=== PATIENT | female | born 1950 | race Caucasian/White ===

== ENCOUNTER → 2016-12-15 | Outpatient (CLI) | payer OTHER | END | disposition home or self-care (01) | LOC: GMAL 18:12 | PROVIDERS: ATTEND Family Medicine | DX: D51.3 Other dietary vitamin B12 deficiency anemia (principal); R06.02 Shortness of breath ==

== ENCOUNTER → 2017-01-13 | Outpatient (CLI) | payer OTHER | LOC: GMAL 10:48 | PROVIDERS: ATTEND Family Medicine | DX: N39.0 Urinary tract infection, site not specified (principal) ==

== ENCOUNTER → 2017-04-25 | Outpatient (CLI) | payer OTHER | END | disposition home or self-care (01) | LOC: GMAL 14:10 | PROVIDERS: ATTEND Family Medicine | DX: N39.0 Urinary tract infection, site not specified (principal) ==

== ENCOUNTER → 2017-05-17 | Outpatient (CLI) | payer OTHER | END | disposition home or self-care (01) | LOC: GMAL 10:51 | PROVIDERS: ATTEND Family Medicine | DX: E55.9 Vitamin D deficiency, unspecified (principal) ==

== ENCOUNTER → 2017-08-23 | Outpatient (CLI) | payer OTHER | END | disposition home or self-care (01) | LOC: GMAL 12:34 | PROVIDERS: ATTEND Family Medicine | DX: E55.9 Vitamin D deficiency, unspecified (principal) ==

== ENCOUNTER → 2017-09-21 | Outpatient (CLI) | payer OTHER | END | disposition home or self-care (01) | LOC: MAMMO 08:48 | PROVIDERS: ATTEND Family Medicine | DX: Z12.31 Encounter for screening mammogram for malignant neoplasm of breast (principal) | CPT/HCPCS: 77063; G0202 ==

== ENCOUNTER 2017-09-28 16:28 | Emergency (ER) | payer MEDICARE, MEDICAID ==
--- NOTE | 2017-09-28 17:55 | RAD ---
EXAM DESCRIPTION: Lumbar Spine 3 Views CLINICAL HISTORY: 67 years ,Female bilateral lower ext weakness COMPARISON: November 08, 2011 TECHNIQUE: Three view FINDINGS: Vertebral body alignment is unremarkable. No acute fractures are identified. Intravertebral disc cages at L4-L5 which appears stable. Narrowing of the L5-S1 disc interspace which has progressed. Marginal osteophytes at L2-L3. No acute fracture noted. Moderate fecal material in the colon. IMPRESSION: Degenerative changes which appear to be progressed slightly as compared to the previous at the L5-S1 level Postsurgical changes of spinal fusion at L4-L5 Electronically signed by: Jenny Short 09/28/2017 5:54 PM [facility]
--- NOTE | 2017-09-28 18:55 | CT ---
PROCEDURE: Lumbar Spine CLINICAL HISTORY: 67 years ,Female ,bilateral lower extremity weakness 2 days COMPARISON: None. TECHNIQUE: Contiguous axial images obtained through the lumbar spine without IV contrast. Coronal and sagittal reformatted images obtained. This exam was performed according to our department optimization program which includes automated exposure control, adjustment of the mA and/or kv according to patient size and/or use of iterative reconstruction technique. FINDINGS: Normal alignment lordosis. Vascular calcification. Intervertebral disc cage and fusion at L4-L5. Narrowing of the L5-S1 disc interspace. Facet arthropathy in the lower lumbar spine. No acute fracture is noted. Liver appears prominent. L2-3: Mild bulging of the disc without significant central canal stenosis. Mild flattening of the anterior aspect of the thecal sac. L3-4: Mild disc bulging and facet arthropathy without significant central canal or neural foraminal narrowing. L4-5: Mild to moderate neural foraminal impingement bilaterally. No central canal stenosis. L5-S1: Facet arthropathy and generalized bulging of the disc with spurring on the right. There is moderate neural foraminal stenosis worse on the right. IMPRESSION: No acute fracture and no significant central canal stenosis Degenerative changes as described Liver appears prominent. Electronically signed by: Jenny Short 09/28/2017 6:53 PM [employer]
--- NOTE | 2017-09-28 19:56 | ED.PDOC ---
History of Present Illness - General Chief Complaint: General Stated Complaint: bilateral lower leg weakness Time Seen by Provider: 09/28/17 16:40 Source: patient, family Exam Limitations: no limitations - History of Present Illness Initial Comments: The patient is a 67-year-old female presenting to the emergency room secondary to 3-4 days of progressive weakness of her lower extremities. No new weakness of the upper extremities. No shortness of breath. No truncal instability. No altered mental status. No headache. No fever. 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 She also does have chronic low back pain with intermittent sciatica which is at its baseline as well. She did fall earlier this morning but is not having any pain from that. She does not seem to be having any new sensory loss. She does have a mild peripheral neuropathy that is chronic but appears to be stable. Sensation to vibration, position, heat and cold appear to be stable for her. No recent medication changes. She reports fair diabetes control. No recent illnesses such as cold sore gastroenteritis. She is not taking any blood thinners. No syncope or near syncope. The patient does have a history of 2 back surgeries in the past the last of which was approximately 10 years ago. She reports that 7 years ago she had a episode like this that lasted approximately 1-2 weeks where she had significant bilateral lower extremity weakness and was treated with steroids and physical therapy and got better. She is not having any incontinence. The patient has 1+ deep tendon reflexes bilateral lower extremities with 2+ to the upper extremities. Strength on physical exam of the lower extremities is 4-4+/5. she is unstable with standing due to weakness in her legs. She does require significant assistance with this. Severity: moderate Improving Factors: nothing Worsening Factors: nothing Associated Symptoms: weakness Allergies/Adverse Reactions: Allergies Amoxicillin [From Augmentin] Allergy (Verified 09/28/17 17:03) Clavulanic Acid [From Augmentin] Allergy (Verified 09/28/17 17:03) Penicillin G Allergy (Verified 08/31/15 10:40) Home Medications: Ambulatory Orders Amlodipine Besylate [Norvasc] 2.5 mg PO DAILY 05/12/14 Anxiety Med 0 mg PO DAILY PRN 05/12/14 Atorvastatin Calcium [Lipitor] 20 mg PO DAILY 05/12/14 Carisoprodol [Soma] 250 mg PO BID 05/12/14 Glimepiride [Amaryl] 1 mg PO DAILY 05/12/14 HYDROcodone 10MG/APAP 325MG [[place] 10/325] 1 tab PO PRN PRN 05/12/14 Sulfa/Trimeth 800/160 (Ds) Tab [Bactrim DS Tab] 1 ea PO BID #20 tab 08/31/15 Ciprofloxacin [Cipro] 250 mg PO BID 10 Days tab 02/23/16 Metronidazole 500 mg PO TID #30 tab 02/23/16 Nitrofurantoin Monohydrate Mac [Macrobid] 100 mg PO BID #20 cap 03/17/16 Review of Systems - Review of Systems Constitutional: States: weakness EENTM: States: no symptoms reported Respiratory: States: no symptoms reported Cardiology: States: no symptoms reported Gastrointestinal/Abdominal: States: no symptoms reported Genitourinary: States: no symptoms reported Musculoskeletal: States: back pain - chronic Skin: States: no symptoms reported Neurological: States: tremors - chronic, weakness - see history of present illness Endocrine: States: no symptoms reported Hematologic/Lymphatic: States: no symptoms reported All other Systems: No Change from Baseline Past Medical History (General) - Patient Medical History Hx Seizures: No Hx Stroke: No Hx Dementia: No Hx Asthma: No Hx of COPD: No Hx Cardiac Disorders: No Hx Congestive Heart Failure: No Hx Pacemaker: No Hx Hypertension: Yes Hx Diabetes: Yes Hx Gastroesophageal Reflux: No Hx Renal Disease: No Hx Cancer: No Hx Hepatitis C: No Hx MRSA: Yes - Wound 2014 MRSA Source:: Wound Surgical History: appendectomy, cholecystectomy, Hysterectomy, other - Vaccination History Hx Tetanus, Diphtheria Vaccination: No Hx Influenza Vaccination: Yes Hx Pneumococcal Vaccination: Yes - Social History Hx Tobacco Use: No Hx Alcohol Use: No Hx Substance Use: No Hx Substance Use Treatment: No Hx Depression: No Family Medical History - Family History Mother Family History: No Known Living Status: Cause of : PR Hx Cardiac Disease: Yes Physical Exam - Physical Exam General Appearance: Alert, Comfortable, No apparent distress Eye Exam: bilateral normal Ears, Nose, Throat: hearing grossly normal, normal ENT inspection - poor dentition, normal pharynx Neck: full range of motion, supple, normal inspection Respiratory: lungs clear, normal breath sounds, no respiratory distress, no accessory muscle use Cardiovascular/Chest: normal peripheral pulses, regular rate, rhythm, no edema Peripheral Pulses: radial,right: 2+, radial,left: 2+, dorsalis pedis,right: 2+, dorsalis pedis,left: 2+ Gastrointestinal/Abdominal: non tender - obese, soft Rectal Exam: deferred Back Exam: normal inspection - operative site noted, no vertebral tenderness, other - she doesn't mild paraspinal discomfort to palpation from L3-L5 bilaterally Extremity: non-tender, no pedal edema, normal capillary refill - the patient does have significantweakness as stated per history of present illness of her lower extremities, other - she does have limited range of motion of her lower extremities primarily due to chronic back pain area Neurologic: brand mgr II-XII nml as tested, alert, normal mood/affect, oriented x 3, abnormal cerebellar tests, motor weakness - ee history of present illness, other - mild sensory deficit bilateral lower extremities which is apparently chronic DTR: 1+: Achilles, left, Achilles, right, Patellar, left, Patellar, right, 2+: Biceps, left, Biceps, right, Brachioradialis, left, Brachioradialis, right Skin Exam: normal color Comments: Vital Signs - 24 hr 09/28/17 16:50 Temperature 98.4 F Pulse Rate [ 81 pulse ox] Respiratory 20 Rate Blood Pressure 179/78 [Left Arm] O2 Sat by Pulse 94 L Oximetry Progress - Progress Progress: 09/28/17 19:59 the patient is a 67-year-old female presenting secondary to 3-4 days of slowly progressive bilateral lower extremity weakness finally culminating in her being unable to ambulate on her own today. She does not have flaccid paralysis. It was a subacute process. She is not having any new pain and is not having any new sensory changes or incontinence. CT scan of the lumbar spine showed no definitive acute pathology however she does have moderate foraminal impingement at L4-L5 bilaterally as well as L5-S1 on the right as well as a moderate disc bulge at L5-S1. Laboratory work so far looks reassuring. The patient has not been given any steroids at this time. The patient is being transferred for neurological evaluation. I'm uncertain at this time if her symptoms are coming from mechanical compression from her chronic low back problems or if she is having ascending weakness from another pathology such as early Guillain Fernandes syndrome, or an atypical transverse myelitis. her previous episode seems to argue for the former. However if it is the latter, early detection would certainly prove beneficial in treatment. Dr Hsieh has graciously agreed to accept the patient for transfer. CT scan of the head shows no evidence of any acute ischemia, hemorrhage, mass effect or hydrocephalus. 09/28/17 20:21 - Results/Orders Results/Orders: Laboratory Tests 09/28/17 09/28/17 09/28/17 17:30 17:30 17:46 WBC 5.6 RBC 4.32 Hgb 12.7 Hct 38.0 MCV 88.0 MCH 29.4 MCHC 33.4 RDW 12.9 Plt Count 206 MPV 8.8 Absolute Neuts (auto) 2.80 Absolute Lymphs (auto) 2.20 Absolute Monos (auto) 0.40 Absolute Eos (auto) 0.20 Absolute Basos (auto) 0.00 Neutrophils % 49.7 Lymphocytes % 39.1 Monocytes % 7.6 Eosinophils % 3.0 Basophils % 0.6 Sodium 136 Potassium 3.5 L Chloride 101 Carbon Dioxide 26 Anion Gap 12.5 BUN 10 Creatinine 0.62 BUN/Creatinine Ratio 16.1 Random Glucose 207 H Serum Osmolality 277.0 Calcium 9.4 Magnesium 1.8 Total Bilirubin 0.5 AST 25 ALT 19 Alkaline Phosphatase 60 Creatine Kinase 52 CK-MB (CK-2) 0.6 CK-MB (CK-2) % Not Reportable Troponin I < 0.02 Serum Total Protein 7.0 Albumin 3.7 Globulin 3.3 Albumin/Globulin Ratio 1.1 TSH 0.90 Urine Color Yellow Urine Appearance Clear Urine pH 6.0 Ur Specific [place] 1.020 Urine Protein Negative Urine Glucose (UA) 100 H Urine Ketones Negative Urine Blood Negative Urine Nitrite Negative Urine Bilirubin Negative Urine Urobilinogen 0.2 Ur Leukocyte Esterase Negative Urine RBC 0-1 Urine WBC 3-5 H Ur Epithelial Cells 3-[address] scan of lumbar spine shows moderate foraminal impingement bilaterally at L4- 5 as well as on the right at L5-S1. There is also moderate disc bulge at L5- S1. Chronic degenerative and postoperative changes otherwise. Departure - Departure Clinical Impression: Weakness of both lower extremities Disposition: Transfer to Hospital Referrals: Franklyn Alonzo III, MD [Primary Care Provider] - 1-2 Weeks Home Medications: Ambulatory Orders Amlodipine Besylate [Norvasc] 2.5 mg PO DAILY 05/12/14 Anxiety Med 0 mg PO DAILY PRN 05/12/14 Atorvastatin Calcium [Lipitor] 20 mg PO DAILY 05/12/14 Carisoprodol [Soma] 250 mg PO BID 05/12/14 Glimepiride [Amaryl] 1 mg PO DAILY 05/12/14 HYDROcodone 10MG/APAP 325MG [[place] 10/325] 1 tab PO PRN PRN 05/12/14 Sulfa/Trimeth 800/160 (Ds) Tab [Bactrim DS Tab] 1 ea PO BID #20 tab 08/31/15 Ciprofloxacin [Cipro] 250 mg PO BID 10 Days tab 02/23/16 Metronidazole 500 mg PO TID #30 tab 02/23/16 Nitrofurantoin Monohydrate Mac [Macrobid] 100 mg PO BID #20 cap 03/17/16 Transfer to Outside Facility - Transfer Information Accepting Provider:: dr hsieh Accepting Facility: [facility] Reason for Transfer: required specialist not available
--- NOTE | 2017-09-28 20:20 | CT ---
EXAM DESCRIPTION: Head CLINICAL HISTORY: bilateral le weakness gradual 3 days COMPARISON: None Available. TECHNIQUE: Contiguous axial images of the brain were obtained without the administration of intravenous contrast. This exam was performed according to our departmental dose-optimization program, which includes automated exposure control, adjustment of the mA and/or kV according to patient size and/or use of iterative reconstruction technique. FINDINGS: There is no acute intracranial hemorrhage or mass effect. Ventricular system is within normal limits. There is adequate isbell-white matter differentiation. There is no skull fracture. The visualized paranasal sinuses and mastoid air cells are within normal limits. There is atherosclerosis. IMPRESSION: No acute intracranial abnormalities. Electronically signed by: Benjamin French MD 09/28/2017 8:[address] [facility]
[2017-09-28 21:01] VITALS: BP 167/83; TEMP 98.2; O2SAT 96
== END 2017-09-28 21:30 | disposition short-term general hospital (02) ==
LOC: ER 16:28
DX: M62.81 Muscle weakness (generalized) (principal); M51.27 Other intervertebral disc displacement, lumbosacral region; E11.9 Type 2 diabetes mellitus without complications; I10 Essential (primary) hypertension

== ENCOUNTER → 2017-12-21 | Outpatient (CLI) | payer MEDICARE, MEDICAID | END | disposition home or self-care (01) | LOC: GMAL 10:21 | PROVIDERS: ATTEND Family Medicine | DX: E55.9 Vitamin D deficiency, unspecified (principal) ==

== ENCOUNTER → 2018-03-29 | Outpatient (CLI) | payer MEDICARE, MEDICAID | LOC: GMAL 12:23 | PROVIDERS: ATTEND Family Medicine | DX: D51.3 Other dietary vitamin B12 deficiency anemia (principal); R53.82 Chronic fatigue, unspecified ==

== ENCOUNTER → 2018-07-05 | Outpatient (CLI) | payer MEDICARE, MEDICAID | LOC: GMAL 14:41 | PROVIDERS: ATTEND Family Medicine | DX: N39.0 Urinary tract infection, site not specified (principal) ==

== ENCOUNTER → 2019-06-01 | Outpatient (CLI) | payer MEDICARE, MEDICAID | LOC: GMAL 10:12 | PROVIDERS: ATTEND Family Medicine | DX: D51.3 Other dietary vitamin B12 deficiency anemia (principal); R53.82 Chronic fatigue, unspecified; I10 Essential (primary) hypertension; E11.42 Type 2 diabetes mellitus with diabetic polyneuropathy; E78.2 Mixed hyperlipidemia; Z51.81 Encounter for therapeutic drug level monitoring ==

== ENCOUNTER → 2019-09-03 | Outpatient (CLI) | payer MEDICARE, MEDICAID | LOC: GMAL 10:55 | PROVIDERS: ATTEND Family Medicine | DX: D51.3 Other dietary vitamin B12 deficiency anemia (principal); I10 Essential (primary) hypertension; E11.42 Type 2 diabetes mellitus with diabetic polyneuropathy; E78.2 Mixed hyperlipidemia ==

== ENCOUNTER → 2020-02-08 | Outpatient (CLI) | payer MEDICARE, MEDICAID ==
--- NOTE | 2020-02-08 17:03 | MRI ---
EXAM DESCRIPTION: Lumbar Spine w/o Contrast CLINICAL HISTORY: low back pain COMPARISON: CT scan September 28, 2017 TECHNIQUE: Multiplanar, multisequence MRI of the lumbar spine was performed without contrast. FINDINGS: Lumbar vertebral body heights are maintained. Normal lumbar lordosis. Mild curvature of the mid lumbar spine with convexity towards the right. Conus medullaris terminates at L1 and is unremarkable. Visualized intra-abdominal and retroperitoneal structures show no acute findings. L1-2 Desiccation. No disc space narrowing. Mild Modic type I degenerative endplate edema is seen in the anterior inferior plate of L1. L2-3 Disc desiccation and moderate posterior disc space narrowing with trace retrolisthesis. Broad-based disc bulge flattens ventral surface of the thecal sac. Mild Modic type I degenerative endplate signal changes are seen. No spinal canal stenosis. Minimal left foraminal encroachment. L3-4 Mild bilateral facet hypertrophic and degenerative changes are seen. No spinal canal stenosis or foraminal encroachment. L4-5 Metallic susceptibility artifact from interbody cage. Unroofing L4 laminectomy. No spinal canal stenosis. No foraminal encroachment. Small area fluid signal in the posterior right epidural space measuring 8 x 7 mm likely represents postop hematoma or seroma without mass effect on the thecal sac. L5-S1 Disc desiccation and mild diffuse disc space narrowing. Minimal less than 2 mm broad-based disc bulging without spinal canal stenosis or foraminal encroachment. Mild bilateral facet hypertrophic and degenerative changes are seen. Mild far lateral disc osteophytic ridging right greater than left. At least moderate right and mild left foraminal encroachment is seen with mild extraforaminal encroachment of the right L5 nerve root. IMPRESSION: Postsurgical changes at L4-5 are seen without complicating features. Moderate disc degenerative disease and mild facet arthropathy at L2-3 is seen without spinal canal stenosis or foraminal encroachment. Multifactorial moderate right greater than left foraminal encroachment is seen at L5-S1. Electronically signed by: Clinton Saldaña MD 02/08/2020 5:01 PM CDT
== END ==
LOC: MRI 10:00
PROVIDERS: ATTEND Family Medicine
DX: M51.36 Other intervertebral disc degeneration, lumbar region (principal); M12.9 Arthropathy, unspecified; M48.061 Spinal stenosis, lumbar region without neurogenic claudication; Z98.890 Other specified postprocedural states

== ENCOUNTER → 2020-07-22 | Outpatient (CLI) | payer MEDICARE, MEDICAID | LOC: GMAL 10:54 | PROVIDERS: ATTEND Family Medicine | DX: N30.00 Acute cystitis without hematuria (principal); Z79.899 Other long term (current) drug therapy; E11.42 Type 2 diabetes mellitus with diabetic polyneuropathy; E78.2 Mixed hyperlipidemia ==

== ENCOUNTER → 2020-11-10 | Outpatient (CLI) | payer MEDICARE, MEDICAID | LOC: GMAL 16:20 | PROVIDERS: ATTEND Family Medicine | DX: N39.0 Urinary tract infection, site not specified (principal) ==